=== PATIENT | male | born 1980 | race Caucasian/White ===

== ENCOUNTER 2019-05-14 16:35 | Emergency (ER) | payer MEDICAID, OTHER ==
[~2019-05-14] VITALS: Ht 167 cm; Wt 74.4 kg
--- NOTE | 2019-05-14 17:06 | ED GU-Female ---
General Chief Complaint: - Urinary Stated Complaint: PULLED GROIN Nursing Triage Note: ARRIVED VIA AMB TO TRIAGE. STATES AFTER SEX THE OTHER NIGHT HE HAS HAD TESTICULAR PAIN AND FEELS LIKE ONE OF HIS TESTICLES HAS MOVED "UP". Nursing Sepsis Screen: No Definite Risk Source: patient Exam Limitations: no limitations History of Present Illness Date Seen by Provider: May 14, 2019 Time Seen by Provider: 16:53 Initial Comments Patient resents to ER by private conveyance with chief complaint that for 5 days ago while having colitis he felt his right testicle a send up into his right inguinal canal with great pain. He's not having dyspareunia, discharge or history of STDs. He is not having any dysuria fever chills. When he was very young he had to have is left testicle surgically descended. No abdominal pain, constipation or diarrhea. Allergies and Home Medications Allergies Coded Allergies: Penicillins (Verified Allergy, Unknown, 05/14/19) Home Medications No Active Prescriptions or Reported Meds Patient Home Medication List Home Medication List Reviewed: Yes Review of Systems Review of Systems Constitutional: No chills, No diaphoresis, No fever EENTM: No ear discharge, No hearing loss Respiratory: No cough, No dyspnea on exertion Cardiovascular: No chest pain, No palpitations Gastrointestinal: No abdominal pain, No constipation, No diarrhea, No dysphagia Genitourinary: see HPI; denies burning, denies discharge, denies dysuria Musculoskeletal: No back pain, No joint pain All Other Systemes Reviewed Negative Unless Noted: Yes Past Uotduam-Yudsja-Dtrzop Hx Patient Social History Alcohol Use: Denies Use Recreational Drug Use: No Smoking Status: Never a Smoker Recent Foreign Travel: No Contact w/Someone Who Travel: No Recent Infectious Disease Expo: No Recent Hopitalizations: No Past Medical History Surgeries: Yes (TESTICLE) Respiratory: No Cardiac: Yes Hypertension Neurological: No Genitourinary: No Gastrointestinal: No Musculoskeletal: No Endocrine: No HEENT: No Cancer: No Psychosocial: No Physical Exam Vital Signs Vital Signs - First Documented 05/14/19 16:45 Temp 37.0 Pulse 90 Resp 16 B/P (MAP) 165/101 (122) Pulse Ox 100 O2 Delivery Room Air Capillary Refill : Less Than 3 Seconds Height, Weight, BMI Height: '" Weight: lbs. oz. kg; 26.00 BMI Method: General Appearance: WD/WN, no apparent distress HEENT: PERRL/EOMI, pharynx normal Neck: full range of motion, normal inspection Cardiovascular: normal peripheral pulses, regular rate, rhythm Respiratory: lungs clear, normal breath sounds, no respiratory distress, no accessory muscle use Gastrointestinal: normal bowel sounds, non tender, soft Genital/Rectal: normal genital exam, other (2, descended testicles. Right testicle mildly tender to palpation without erythema. No discharge from the urethra. No lesions.) Neurologic/Psychiatric: alert, normal mood/affect, oriented x 3 Progress/Results/Core Measures Suspected Sepsis Recent Fever Within 48 Hours: No Infection Criteria Present: None New/Unexplained Altered Menta: No Sepsis Screen: No Definite Risk SIRS Temperature: Pulse: 90 Respiratory Rate: 16 Blood Pressure 165 /101 Mean: 122 Results/Orders Lab Results Laboratory Tests Test 05/14/19 16:56 Range/Units Urine Color YELLOW Urine Clarity CLEAR Urine pH 6.0 5-9 Urine Specific [place] 1.015 L 1.016-1.022 Urine Protein NEGATIVE NEGATIVE Urine Glucose (UA) NEGATIVE NEGATIVE Urine Ketones NEGATIVE NEGATIVE Urine Nitrite NEGATIVE NEGATIVE Urine Bilirubin NEGATIVE NEGATIVE Urine Urobilinogen 0.2 < = 1.0 MG/DL Urine Leukocyte Esterase NEGATIVE NEGATIVE Urine RBC (Auto) NEGATIVE NEGATIVE Urine RBC NONE /HPF Urine WBC NONE /HPF Urine Squamous Epithelial Cells NONE /HPF Urine Crystals NONE /LPF Urine Bacteria NEGATIVE /HPF Urine Casts NONE /LPF Urine Mucus NEGATIVE /LPF Urine Culture Indicated NO My Orders Orders - NATALIE ROSAS Us Scrotum (Testicle) [id number] (05/14/19 17:01) Ua Culture If Indicated (05/14/19 17:02) Vital Signs/I&O 05/14/19 16:45 Temp 37.0 Pulse 90 Resp 16 B/P (MAP) 165/101 (122) Pulse Ox 100 O2 Delivery Room Air Capillary Refill : Less Than 3 Seconds Blood Pressure Mean: 122 Progress Note : Time: 17:58 Progress Note Ultrasound ruled out torsion. Will refer him to urology outpatient. Diagnostic Imaging Diagonstic Imaging: Ultrasound Plain Films/CT/US/NM/MRI: other (scrotum) Comments NAME: R[facility]ANEGAS [facility] REC#: [id number] PT STATUS: REG ER : 1980 PHYSICIAN: NATALIE ROSAS MD ADMIT DATE: 05/14/19/ER Draft Date of Exam:05/14/19 US SCROTUM (Testicle) [id number] PROCEDURE: US Scrotum. TECHNIQUE: Multiple real-time grayscale images were obtained over the scrotum in various projections bilaterally. INDICATION: Right testicular pain. EXAMINATION: Ultrasound of the scrotum dated 05/14/2019. FINDINGS: The right testicle is 4.3 x 1.9 x 2.5 cm in size and the left is 4 x 2.1 x 2.6 cm. There is bilateral symmetric blood flow seen. No intratesticular lesions are appreciated. Epididymides are unremarkable. There appears to be a left-sided varicocele. IMPRESSION: 1. Varicocele noted on the left. Remaining visualized structures are unremarkable. Dictated on workstation # [id number] Dict: 05/14/19 1746 Trans: 05/14/19 1750 TS [id number] Interpreted by: YANNI MOREIRA MD Electronically signed by: Reviewed: Reviewed by Me Departure Impression Primary Impression: Right testicular pain Disposition: HOME, SELF-CARE Condition: Stable Departure-Patient Inst. Decision time for Depature: 17:59 Referrals: JAMIL WEEMS MD Patient Instructions: How to Perform a Testicular Self-Exam Add. Discharge Instructions: Call Dr. Weems, urology and request an outpatient follow-up appointment. If you're having testicle that ascends into the inguinal canal and does not come back down immediately this can be an emergency and you should re-present to the ER. All discharge instructions reviewed with patient and/or family. Voiced understanding. Scripts No Active Prescriptions or Reported Meds NATALIE ROSAS May 14, 2019 17:06
[2019-05-14 17:08] LABS: BILIRUBIN,URINE NEGATIVE (NEGATIVE); CLARITY,URINE CLEAR; COLOR,URINE YELLOW; GLUCOSE, URINE (UA) NEGATIVE (NEGATIVE); KETONES,URINE NEGATIVE (NEGATIVE); LEUKOCYTE ESTERASE ,URINE NEGATIVE (NEGATIVE); NITRITE,URINE NEGATIVE (NEGATIVE); PROTEIN,URINE NEGATIVE (NEGATIVE)
[2019-05-14 17:14] LABS: BACTERIA,URINE NEGATIVE /HPF
--- NOTE | 2019-05-14 17:50 | Diagnostic Imaging Report ---
PROCEDURE: US Scrotum. TECHNIQUE: Multiple real-time grayscale images were obtained over the scrotum in various projections bilaterally. INDICATION: Right testicular pain. EXAMINATION: Ultrasound of the scrotum dated 05/14/2019. FINDINGS: The right testicle is 4.3 x 1.9 x 2.5 cm in size and the left is 4 x 2.1 x 2.6 cm. There is bilateral symmetric blood flow seen. No intratesticular lesions are appreciated. Epididymides are unremarkable. There appears to be a left-sided varicocele. IMPRESSION: 1. Varicocele noted on the left. Remaining visualized structures are unremarkable. Dictated by: Dictated on workstation # [id number]
[2019-05-14 18:14] VITALS: BP 165/101
== END 2019-05-14 18:14 | disposition home or self-care (01) ==
LOC: ER 16:37
DX: N50.811 Right testicular pain (principal); I10 Essential (primary) hypertension; Z88.0 Allergy status to penicillin
CPT/HCPCS: 76870; 81000